=== PATIENT | male | born 1955 | race Caucasian/White ===

== ENCOUNTER 2018-12-06 08:54 | Inpatient (IN) | payer OTHER ==
[2018-12-06 09:24] VITALS: BMI 25.0
--- NOTE | 2018-12-06 10:29 | HP ---
CIWA Score Nausea/Vomitin-Mild Nausea/No Vomiting Muscle Tremors: 3 Anxiety: 2 Agitation: 2 Paroxysmal Sweats: 1-Minimal Palms Moist Orientation: 0-Oriented Tacttile Disturbances: 0-None Auditory Disturbances: 0-None Visual Disturbances: 0-None Headache: 3-Moderate CIWA-Ar Total Score: 12 - Admission Criteria OASAS Guidelines: Admission for Medically Managed Detox: Requires at least one of the followin. CIWA greater than 12 2. Seizures within the past 24 hours 3. Delirium tremens within the past 24 hours 4. Hallucinations within the past 24 hours 5. Acute intervention needed for co occurring medical disorder 6. Acute intervention needed for co occurring psychiatric disorder 7. Severe withdrawal that cannot be handled at a lower level of care (continued vomiting, continued diarrhea, abnormal vital signs) requiring intravenous medication and/or fluids 8. Admission ROS S - HPI Chief Complaint: here for alcohol detox Allergies/Adverse Reactions: Allergies Allergy/AdvReac Type Severity Reaction Status Date / Time Penicillins Allergy Severe Hives Verified 12/06/18 09:18 History of Present Illness: 63 yo with HIV, was recently hospitalized for 2 months for treatment of MRSA infection of L shoulder. Pt states he left one week ago and he started drinking as soon as he left the hospital. Pt states he must have blacked out last night and neighbor called ambulance. Pt states he was in ER overnight and sent here for further management. Does not know name of ER, was given Valium. Pt states he has PCP-Dr. Meagan Taylor, [facility]. Pt states he has lifelong h/o of fast heart rate- was never told why. Given atenolol for this alcohol- 1/4 of vodka/day for the last week, h/o seizure in the past, denies other drug use DUR- #10 percocets 11/26/18 for shoulder pain - Ebola screening Have you traveled outside of the country in the last 21 days: No (N) Have you had contact with anyone from an Ebola affected area: No Do you have a fever: No - Review of Systems Constitutional: No Symptoms Reported EENT: reports: No Symptoms Reported Respiratory: reports: No Symptoms reported Cardiac: reports: No Symptoms Reported GI: reports: No Symptoms Reported : reports: No Symptoms Reported Musculoskeletal: reports: No Symptoms Reported Integumentary: reports: No Symptoms Reported Neuro: reports: No Symptoms reported Endocrine: reports: No Symptoms Reported Hematology: reports: No Symptoms Reported Psychiatric: reports: No Sypmtoms Reported Other Systems: Reviewed and Negative Patient History - Patient Medical History Hx Hypertension: Yes (atenolol) Hx Genitourinary Disorders: Yes (GERD- prilosec) Hx Human Immunodeficiency Virus (HIV): Yes (Biktarvy) Other Medical History: L shoulder MRSA- treated - Patient Surgical History Hx Orthopedic Surgery: Yes (shoulder area with MRSA infection) - Smoking Cessation Smoking history: Never smoked Have you smoked in the past 12 months: No - Substances abused Alcohol Substance route: Oral Frequency: Daily Amount used: 02/20 of vodka Age of first use: 18 Date of last use: 12/05/18 Admission Physical Exam [facility] - Vital Signs Vital Signs: Vital Signs - 24 hr 12/06/18 09:20 Temperature 97.1 F L Pulse Rate 147 H Respiratory 20 Rate Blood Pressure 161/94 - Physical General Appearance: Yes: Within Normal Limits, Thin HEENTM: Yes: Within Normal Limits Respiratory: Yes: Within Normal Limits, Lungs Clear Cardiology: Yes: Within Normal Limits, Tachycardia Abdominal: Yes: Within Normal Limits, Normal Bowel Sounds Back: Yes: Within Normal Limits Musculoskeletal: Yes: Within Normal Limits Extremities: Yes: Within Normal Limits Neurological: Yes: Within Normal Limits Integumentary: Yes: Within Normal Limits - Diagnostic (1) HIV (human immunodeficiency virus infection) Current Visit: Yes Status: Acute (2) Alcohol use disorder Current Visit: Yes Status: Acute (3) Tachycardia Current Visit: Yes Status: Acute (4) HTN (hypertension) Current Visit: Yes Status: Acute Breathalyzer - Breathalyzer Breathalyzer: 0 Urine Drug Screen - Test Device Lot number: [id number] Expiration date: 07/17/20 - Control Is test valid?: Yes - Results Drug screen NEGATIVE: No Urine drug screen results: OXY-Oxycodone, BZO-Benzodiazepines Inpatient Rehab Admission - Rehab Decision to Admit Inpatient rehab admission?: No
[2018-12-06] MEDS ORDERED: ACETAMINOPHEN 325 MG TABLET (FP) PO PRN ×2 (11:00)
[2018-12-06] MEDS ORDERED: IBUPROFEN 400 MG TABLET (FP) PO PRN (11:00)
[2018-12-06] MEDS ORDERED: LORazepam 1 MG TABLET PO PRN (11:00)
[2018-12-06] MEDS ORDERED: BISMUTH SUBSALICYLATE 524 MG/30 ML UD PO PRN (11:00)
[2018-12-06] MEDS ORDERED: MELATONIN 5 MG TABLETS PO PRN (11:00)
[2018-12-06] MEDS ORDERED: METHOCARBAMOL 500 MG TABLET PO PRN (11:00)
[2018-12-06] MEDS ORDERED: MAG HYDROX/AL HYDROX/SIMETH 30 ML UNIT-DOSE CUP PO PRN (11:00)
[2018-12-06] MEDS ORDERED: MAGNESIUM CITRATE 300 ML BOTTLE PO PRN (11:00)
[2018-12-06] MEDS ORDERED: hydrOXYzine PAMOATE 25 MG CAPSULE (FP) PO PRN (11:00)
[2018-12-06] MEDS ORDERED: MENTHOL/PHENOL 1 EACH UD MM PRN (11:00)
[2018-12-06] MEDS ORDERED: LORazepam 2 MG TABLET PO ONE (11:00)
[2018-12-06] MEDS ORDERED: MAGNESIUM HYDROX 2400MG/30ML ORAL SUSPENSION 30 ML CUP PO PRN (11:00)
[2018-12-06] MEDS ORDERED: PATIENT'S OWN MEDICATION (NON-FORMULARY) (Atenolol [Tenormin] 100 MG) PO SCH (11:15)
[2018-12-06] MEDS ORDERED: PATIENT'S OWN MEDICATION (NON-FORMULARY) (Bictegrav/Emtricit/Tenofov Ala 1 EACH) PO SCH (11:15)
--- NOTE | 2018-12-06 15:29 | EKG ---
Test Reason : Blood Pressure : / mmHG Vent. Rate : 136 BPM Atrial Rate : 136 BPM P-R Int : 142 ms QRS Dur : 112 ms QT Int : 292 ms P-R-T Axes : 026 -55 063 degrees QTc Int : 439 ms SINUS TACHYCARDIA LEFT AXIS DEVIATION ABNORMAL ECG NO PREVIOUS ECGS AVAILABLE Confirmed by MD DAMON, MUSHTAQ ([id number]) on 12/06/2018 3:28:44 PM Referred By: Confirmed By:MUSHTAQ JOSE MD
[2018-12-06] MEDS: ATENOLOL 50 MG TABLET (FP) PO SCH (15:36)
[2018-12-06] MEDS: LORazepam 2 MG TABLET PO SCH ×2 (17:45→22:29)
[2018-12-06] MEDS: THIAMINE HCL 100 MG TABLET (FP) PO SCH (22:29)
[2018-12-07] MEDS: LORazepam 2 MG TABLET PO SCH ×4 (05:45→22:11)
[2018-12-07 10:01] LABS: HEMATOCRIT 38.7 % (35.4-49); MCH 30.9 pg (25.7-33.7); MCHC 33.7 g/dl (32.0-35.9); MEAN CELL VOLUME 91.9 fl (80-96); MEAN PLT VOLUME 7.7 fl (7.5-11.1); PLATELET COUNT 176 K/MM3 (134-434); RBC 4.21 M/mm3 (4.00-5.60); RDW 13.9 % (11.9-15.9); WHITE BLOOD COUNT 5.4 K/mm3 (4.0-10.0)
[2018-12-07 10:06] LABS: ALBUMIN 2.9 g/dl (3.4-5.0); BILIRUBIN,TOTAL 0.5 mg/dL (0.2-1); BLOOD UREA NITROGEN 22.5 mg/dL (7-18); CALCIUM 8.4 mg/dL (8.5-10.1); CREATININE 1.1 mg/dL (0.55-1.3); POTASSIUM 4.2 mmol/L (3.5-5.1); TOT PROT 7.1 g/dl (6.4-8.2)
[2018-12-07] MEDS: PRENATAL VITAMINS W/ FOLIC ACID TABLET (FP) PO SCH (10:34)
[2018-12-07] MEDS: BICTEGRAV/EMTRICIT/TENOFOV (BIKTARVY) 50-200-25 MG TABLET PO SCH (10:34)
--- NOTE | 2018-12-07 11:45 | PN ---
[facility] CIWA - CIWA Score Nausea/Vomitin-Mild Nausea/No Vomiting Muscle Tremors: 4-Moderate,w/Arms Extend Anxiety: 4-Mod. Anxious/Guarded Agitation: 3 Paroxysmal Sweats: 2 Orientation: 0-Oriented Tacttile Disturbances: 0-None Auditory Disturbances: 0-None Visual Disturbances: 0-None Headache: 0-None Present CIWA-Ar Total Score: 14 S Progress Note (SOAP) Subjective: report today has alcohol withdrawal sx more than yesterday but ativan helps the anxiety and tremor ate breakfast resting on bed comfortably Objective: 12/07/18 11:41 Vital Signs Temperature 97.2 F L 12/07/18 09:06 Pulse Rate 82 12/07/18 09:06 Respiratory Rate 16 12/07/18 09:06 Blood Pressure 118/84 12/07/18 09:06 O2 Sat by Pulse Oximetry (%) Laboratory Last Values WBC 5.4 K/mm3 (4.0-10.0) 12/07/18 08:00 RBC 4.21 M/mm3 (4.00-5.60) 12/07/18 08:00 Hgb 13.0 GM/dL (11.7-16.9) 12/07/18 08:00 Hct 38.7 % (35.4-49) 12/07/18 08:00 MCV 91.9 fl (80-96) 12/07/18 08:00 MCH 30.9 pg (25.7-33.7) 12/07/18 08:00 MCHC 33.7 g/dl (32.0-35.9) 12/07/18 08:00 RDW 13.9 % (11.9-15.9) 12/07/18 08:00 Plt Count 176 K/MM3 (134-434) 12/07/18 08:00 MPV 7.7 fl (7.5-11.1) 12/07/18 08:00 Sodium 141 mmol/L (136-145) 12/07/18 08:00 Potassium 4.2 mmol/L (3.5-5.1) 12/07/18 08:00 Chloride 106 mmol/L (98-107) 12/07/18 08:00 Carbon Dioxide 26 mmol/L (21-32) 12/07/18 08:00 Anion Gap 10 MMOL/L (8-16) 12/07/18 08:00 BUN 22.5 mg/dL (7-18) H 12/07/18 08:00 Creatinine 1.1 mg/dL (0.55-1.3) 12/07/18 08:00 Est GFR (CKD-EPI)AfAm 82.37 12/07/18 08:00 Est GFR (CKD-EPI)NonAf 71.07 12/07/18 08:00 Random Glucose 151 mg/dL (74-106) H 12/07/18 08:00 Calcium 8.4 mg/dL (8.5-10.1) L 12/07/18 08:00 Total Bilirubin 0.5 mg/dL (0.2-1) 12/07/18 08:00 AST 35 U/L (15-37) 12/07/18 08:00 ALT 24 U/L (13-61) 12/07/18 08:00 Alkaline Phosphatase 89 U/L (45-117) 12/07/18 08:00 Total Protein 7.1 g/dl (6.4-8.2) 12/07/18 08:00 Albumin 2.9 g/dl (3.4-5.0) L 12/07/18 08:00 RPR Titer Nonreactive (NONREACTIVE) 12/07/18 08:00 lab noted Assessment: 12/07/18 11:45 alcohol withdrawal sx Plan: continue ativan detox regimen
[2018-12-07] MEDS: ATENOLOL 50 MG TABLET (FP) PO SCH (12:35)
[2018-12-07] MEDS: THIAMINE HCL 100 MG TABLET (FP) PO SCH (22:11)
[2018-12-08] MEDS: LORazepam 1 MG TABLET PO SCH ×4 (05:40→22:11)
[2018-12-08] MEDS: PRENATAL VITAMINS W/ FOLIC ACID TABLET (FP) PO SCH (10:02)
[2018-12-08] MEDS: BICTEGRAV/EMTRICIT/TENOFOV (BIKTARVY) 50-200-25 MG TABLET PO SCH (10:02)
[2018-12-08] MEDS: ATENOLOL 50 MG TABLET (FP) PO SCH (10:04)
--- NOTE | 2018-12-08 12:01 | PN ---
[facility] CIWA - CIWA Score Nausea/Vomitin-Mild Nausea/No Vomiting Muscle Tremors: 3 Anxiety: 2 Agitation: 1-Slight > Activity Paroxysmal Sweats: 1-Minimal Palms Moist Orientation: 0-Oriented Tacttile Disturbances: 1-Very Mild Itch/Numbness Auditory Disturbances: 1-Very Mild Visual Disturbances: 0-None Headache: 0-None Present CIWA-Ar Total Score: 10 S Progress Note (SOAP) Subjective: doing well with ativan detox regimen ate breakfast tolerate food and fluid well less tremor mild anxiety Objective: 12/08/18 12:00 Vital Signs Temperature 97.7 F 12/08/18 09:20 Pulse Rate 78 12/08/18 09:20 Respiratory Rate 18 12/08/18 09:20 Blood Pressure 133/78 12/08/18 09:20 O2 Sat by Pulse Oximetry (%) Laboratory Last Values WBC 5.4 K/mm3 (4.0-10.0) 12/07/18 08:00 RBC 4.21 M/mm3 (4.00-5.60) 12/07/18 08:00 Hgb 13.0 GM/dL (11.7-16.9) 12/07/18 08:00 Hct 38.7 % (35.4-49) 12/07/18 08:00 MCV 91.9 fl (80-96) 12/07/18 08:00 MCH 30.9 pg (25.7-33.7) 12/07/18 08:00 MCHC 33.7 g/dl (32.0-35.9) 12/07/18 08:00 RDW 13.9 % (11.9-15.9) 12/07/18 08:00 Plt Count 176 K/MM3 (134-434) 12/07/18 08:00 MPV 7.7 fl (7.5-11.1) 12/07/18 08:00 Sodium 141 mmol/L (136-145) 12/07/18 08:00 Potassium 4.2 mmol/L (3.5-5.1) 12/07/18 08:00 Chloride 106 mmol/L (98-107) 12/07/18 08:00 Carbon Dioxide 26 mmol/L (21-32) 12/07/18 08:00 Anion Gap 10 MMOL/L (8-16) 12/07/18 08:00 BUN 22.5 mg/dL (7-18) H 12/07/18 08:00 Creatinine 1.1 mg/dL (0.55-1.3) 12/07/18 08:00 Est GFR (CKD-EPI)AfAm 82.37 12/07/18 08:00 Est GFR (CKD-EPI)NonAf 71.07 12/07/18 08:00 Random Glucose 151 mg/dL (74-106) H 12/07/18 08:00 Calcium 8.4 mg/dL (8.5-10.1) L 12/07/18 08:00 Total Bilirubin 0.5 mg/dL (0.2-1) 12/07/18 08:00 AST 35 U/L (15-37) 12/07/18 08:00 ALT 24 U/L (13-61) 12/07/18 08:00 Alkaline Phosphatase 89 U/L (45-117) 12/07/18 08:00 Total Protein 7.1 g/dl (6.4-8.2) 12/07/18 08:00 Albumin 2.9 g/dl (3.4-5.0) L 12/07/18 08:00 RPR Titer Nonreactive (NONREACTIVE) 12/07/18 08:00 lab noted 12/08/18 12:04 random glucose elevation fasting glucose Assessment: 12/08/18 12:05 alcohol withdrawal sx Plan: continue ativan detox regimen
[2018-12-08] MEDS: THIAMINE HCL 100 MG TABLET (FP) PO SCH (22:11)
[2018-12-09] MEDS ORDERED: LORazepam 0.5 MG TABLET PO PRN
[2018-12-09] MEDS: LORazepam 0.5 MG TABLET PO SCH ×2 (05:21→10:19)
[2018-12-09 09:12] VITALS: BP 121/85; PULSE 88; TEMP 98.2
[2018-12-09] MEDS: BICTEGRAV/EMTRICIT/TENOFOV (BIKTARVY) 50-200-25 MG TABLET PO SCH (10:18)
[2018-12-09] MEDS: ATENOLOL 50 MG TABLET (FP) PO SCH (10:19)
[2018-12-09] MEDS: PRENATAL VITAMINS W/ FOLIC ACID TABLET (FP) PO SCH (10:19)
--- NOTE | 2018-12-09 13:28 | DS ---
[facility] Detox Discharge Summary Admission Date: 12/06/18 Discharge Date: 12/09/18 - History Present History: Alcohol Dependence, Opioid Dependence Additional Comments: 63 years old male admitted on 12/06/18 for alcohol withdrawal sx management dd well with ativan detox regimen no complication through out the detox stay patient is alert oriented x 3 Cardiac S1S2 regular rate rhythm respiratory clear lung bilaterally on auscultation extremities full range of motion - Physical Exam Results Vital Signs: Vital Signs Temperature 98.2 F 12/09/18 09:11 Pulse Rate 88 12/09/18 09:11 Respiratory Rate 16 12/09/18 09:11 Blood Pressure 121/85 12/09/18 09:11 O2 Sat by Pulse Oximetry (%) Pertinent Admission Physical Exam Findings: alcohol withdrawal sx Laboratory Last Values WBC 5.4 K/mm3 (4.0-10.0) 12/07/18 08:00 RBC 4.21 M/mm3 (4.00-5.60) 12/07/18 08:00 Hgb 13.0 GM/dL (11.7-16.9) 12/07/18 08:00 Hct 38.7 % (35.4-49) 12/07/18 08:00 MCV 91.9 fl (80-96) 12/07/18 08:00 MCH 30.9 pg (25.7-33.7) 12/07/18 08:00 MCHC 33.7 g/dl (32.0-35.9) 12/07/18 08:00 RDW 13.9 % (11.9-15.9) 12/07/18 08:00 Plt Count 176 K/MM3 (134-434) 12/07/18 08:00 MPV 7.7 fl (7.5-11.1) 12/07/18 08:00 Sodium 141 mmol/L (136-145) 12/07/18 08:00 Potassium 4.2 mmol/L (3.5-5.1) 12/07/18 08:00 Chloride 106 mmol/L (98-107) 12/07/18 08:00 Carbon Dioxide 26 mmol/L (21-32) 12/07/18 08:00 Anion Gap 10 MMOL/L (8-16) 12/07/18 08:00 BUN 22.5 mg/dL (7-18) H 12/07/18 08:00 Creatinine 1.1 mg/dL (0.55-1.3) 12/07/18 08:00 Est GFR (CKD-EPI)AfAm 82.37 12/07/18 08:00 Est GFR (CKD-EPI)NonAf 71.07 12/07/18 08:00 Random Glucose 151 mg/dL (74-106) H 12/07/18 08:00 Fasting Glucose 116 mg/dL (74-106) H 12/09/18 08:15 Calcium 8.4 mg/dL (8.5-10.1) L 12/07/18 08:00 Total Bilirubin 0.5 mg/dL (0.2-1) 12/07/18 08:00 AST 35 U/L (15-37) 12/07/18 08:00 ALT 24 U/L (13-61) 12/07/18 08:00 Alkaline Phosphatase 89 U/L (45-117) 12/07/18 08:00 Total Protein 7.1 g/dl (6.4-8.2) 12/07/18 08:00 Albumin 2.9 g/dl (3.4-5.0) L 12/07/18 08:00 RPR Titer Nonreactive (NONREACTIVE) 12/07/18 08:00 lab noted patient agrees to bringing in lab result to ID provider for follow up glucose serum level - Treatment Hospital Course: Detox Protocol Followed, Detoxed Safely, Responded well, Discharged Condition Good, Rehab Referral Accepted Patient has Accepted a Rehab Referral to: [facility] - Medication Discharge Medications: Ambulatory Orders Atenolol [Tenormin] 100 mg PO DAILY 12/06/18 Bictegrav/Emtricit/Tenofov Ala [Biktarvy 50-200-25 mg Tablet] 1 each PO DAILY Omeprazole 40 mg PO DAILY 12/06/18 Naloxone HCl [Narcan] 4 mg NS ASDIR PRN #1 spray 12/09/18 - Diagnosis (1) Alcohol dependence with withdrawal, uncomplicated Current Visit: Yes Status: Acute (2) HIV (human immunodeficiency virus infection) Current Visit: Yes Status: Chronic Qualifiers: HIV symptom status: asymptomatic Qualified Code(s): Z21 - Asymptomatic human immunodeficiency virus [HIV] infection status (3) HTN (hypertension) Current Visit: Yes Status: Chronic Qualifiers: Hypertension type: essential hypertension Qualified Code(s): I10 - Essential (primary) hypertension - AMA Did Patient Leave Against Medical Advice: No CIWA Score - CIWA Score Nausea/Vomitin-No Nausea/No Vomiting Muscle Tremors: 2 Anxiety: 1-Mildly Anxious Agitation: 1-Slight > Activity Paroxysmal Sweats: No Perspiration Orientation: 0-Oriented Tacttile Disturbances: 1-Very Mild Itch/Numbness Auditory Disturbances: 0-None Visual Disturbances: 0-None Headache: 0-None Present CIWA-Ar Total Score: 5
[2018-12-10] MEDS ORDERED: LORazepam 0.5 MG TABLET PO ONE (05:00)
== END 2018-12-09 11:23 | disposition home or self-care (01) | DRG 897 ==
LOC: YASAS 08:54 → Y3N 11:32
PROVIDERS: ADMIT Allergy & Immunology; ATTEND Allergy & Immunology
PROC: HZ2ZZZZ Detoxification Services for Substance Abuse Treatment (ICD-10-PCS; principal; 2018-12-06)
DX: F10.230 Alcohol dependence with withdrawal, uncomplicated (principal); I10 Essential (primary) hypertension; Z21 Asymptomatic human immunodeficiency virus [HIV] infection status; Z86.14 Personal history of Methicillin resistant Staphylococcus aureus infection
CPT/HCPCS: 36415; 80053; 82947; 85027; 86593; 93005; 93010

== ENCOUNTER 2021-12-04 12:00 | Inpatient (IN) | payer OTHER ==
[2021-12-04] MEDS ORDERED: cloNIDine HCL 0.1 MG TABLET PO ONE (14:00)
[2021-12-04] MEDS ORDERED: cloNIDine HCL 0.1 MG TABLET ONE (14:13)
[2021-12-04 14:56] VITALS: BMI 24.3
[2021-12-04] MEDS ORDERED: NALOXONE HCL (KLOXXADO) 8 MG SPRAY NS PRN (15:42)
[2021-12-04] MEDS ORDERED: ACETAMINOPHEN 325 MG TABLET (FP) PO PRN ×2 (15:42)
[2021-12-04] MEDS ORDERED: IBUPROFEN 600 MG TABLET (FP) PO PRN (15:42)
[2021-12-04] MEDS ORDERED: BENZOCAINE/MENTHOL (CHLORASEPTIC ) LOZENGE MM PRN (15:42)
[2021-12-04] MEDS ORDERED: IBUPROFEN 400 MG TABLET (FP) PO PRN (15:42)
[2021-12-04] MEDS ORDERED: MAGNESIUM HYDROX 2400MG/30ML ORAL SUSPENSION 30 ML CUP PO PRN (15:42)
[2021-12-04] MEDS ORDERED: MAGNESIUM CITRATE 300 ML BOTTLE PO PRN (15:42)
[2021-12-04] MEDS ORDERED: DICYCLOMINE HCL 10 MG CAPSULE PO PRN (15:42)
[2021-12-04] MEDS ORDERED: ONDANSETRON *ODT* 4 MG TABLET SL PRN (15:42)
[2021-12-04] MEDS ORDERED: LOPERAMIDE HCL 2 MG CAPSULE PO PRN (15:42)
[2021-12-04] MEDS ORDERED: BISMUTH SUBSALICYLATE 262 MG/15 ML BTL PO PRN (15:42)
[2021-12-04] MEDS ORDERED: METHOCARBAMOL 500 MG TABLET PO PRN (15:42)
[2021-12-04] MEDS ORDERED: LORazepam 2 MG TABLET PO ONE (15:46)
[2021-12-04] MEDS ORDERED: LORazepam 1 MG TABLET PO PRN (15:46)
[2021-12-04] MEDS ORDERED: LORazepam 2 MG TABLET ONE (15:51)
[2021-12-04] MEDS ORDERED: ATENOLOL 50 MG TABLET (FP) PO SCH (15:55)
[2021-12-04] MEDS: hydrOXYzine PAMOATE 25 MG CAPSULE (FP) PO PRN (17:55)
[2021-12-04] MEDS: PRENATAL VITAMINS W/ FOLIC ACID TABLET (FP) PO SCH (17:56)
[2021-12-04] MEDS: LORazepam 2 MG TABLET PO SCH ×2 (17:56→22:31)
[2021-12-04] MEDS: MAG HYDROX/AL HYDROX/SIMETH 30 ML UNIT-DOSE CUP PO PRN (18:00)
[2021-12-04] MEDS: MELATONIN 5 MG TABLETS PO SCH (22:31)
[2021-12-04] MEDS: THIAMINE HCL 100 MG TABLET (FP) PO SCH (22:32)
[2021-12-04] MEDS: ATENOLOL 50 MG TABLET (FP) PO SCH (22:32)
[2021-12-04] MEDS: BETAMETHASONE DIPR 0.05% OINT 45 GM TUBE TP SCH (23:36)
[2021-12-05] MEDS: LORazepam 2 MG TABLET PO SCH ×4 (05:53→22:11)
[2021-12-05] MEDS: PRENATAL VITAMINS W/ FOLIC ACID TABLET (FP) PO SCH (10:41)
[2021-12-05] MEDS: BICTEGRAV/EMTRICIT/TENOFOV (BIKTARVY) 50-200-25 MG TABLET PO SCH (10:43)
[2021-12-05] MEDS: PANTOPRAZOLE 40 MG TABLET PO SCH (10:43)
[2021-12-05] MEDS: BETAMETHASONE DIPR 0.05% OINT 45 GM TUBE TP SCH ×2 (10:44→22:11)
[2021-12-05] MEDS: ATENOLOL 50 MG TABLET (FP) PO SCH (11:29)
[2021-12-05] MEDS: hydrOXYzine PAMOATE 25 MG CAPSULE (FP) PO PRN (13:21)
[2021-12-05 14:13] LABS: HEMATOCRIT 36.6 % (35.4-49); HEMOGLOBIN 12.8 GM/dL (11.7-16.9); MCH 33.1 pg (25.7-33.7); MCHC 34.9 g/dl (32.0-35.9); MEAN PLT VOLUME 8.1 fl (7.5-11.1); PLATELET COUNT 202 10^3/uL (134-434); RBC 3.85 M/mm3 (4.00-5.60); RDW 13.4 % (11.9-15.9); WHITE BLOOD COUNT 6.1 K/mm3 (4.0-10.0)
[2021-12-05 14:22] LABS: CALCIUM 8.3 mg/dL (8.5-10.1)
[2021-12-05 14:23] LABS: ALBUMIN 3.1 g/dl (3.4-5.0); BLOOD UREA NITROGEN 20.8 mg/dL (7-18)
[2021-12-05 14:26] LABS: CREATININE 0.9 mg/dL (0.55-1.3)
[2021-12-05 14:27] LABS: BILIRUBIN,TOTAL 1.3 mg/dL (0.2-1)
[2021-12-05] MEDS: LACTULOSE 20 GM/30 ML UDC (FOR ORAL USE ONLY) PO SCH ×2 (15:49→22:11)
[2021-12-05] MEDS: MAG HYDROX/AL HYDROX/SIMETH 30 ML UNIT-DOSE CUP PO PRN (18:31)
[2021-12-05] MEDS: MELATONIN 5 MG TABLETS PO SCH (22:11)
[2021-12-05] MEDS: THIAMINE HCL 100 MG TABLET (FP) PO SCH (22:11)
[2021-12-06] MEDS: LORazepam 1 MG TABLET PO SCH ×4 (05:05→22:13)
[2021-12-06] MEDS: LACTULOSE 20 GM/30 ML UDC (FOR ORAL USE ONLY) PO SCH ×3 (05:06→22:13)
[2021-12-06] MEDS: BICTEGRAV/EMTRICIT/TENOFOV (BIKTARVY) 50-200-25 MG TABLET PO SCH (10:15)
[2021-12-06] MEDS: PRENATAL VITAMINS W/ FOLIC ACID TABLET (FP) PO SCH (10:15)
[2021-12-06] MEDS: ATENOLOL 50 MG TABLET (FP) PO SCH (10:15)
[2021-12-06] MEDS: PANTOPRAZOLE 40 MG TABLET PO SCH (10:15)
[2021-12-06] MEDS: BETAMETHASONE DIPR 0.05% OINT 45 GM TUBE TP SCH ×2 (10:17→22:13)
[2021-12-06] MEDS: THIAMINE HCL 100 MG TABLET (FP) PO SCH (22:12)
[2021-12-06] MEDS: MELATONIN 5 MG TABLETS PO SCH (22:12)
[2021-12-07] MEDS ORDERED: LORazepam 0.5 MG TABLET PO PRN
[2021-12-07] MEDS: LORazepam 0.5 MG TABLET PO SCH ×4 (06:51→22:02)
[2021-12-07] MEDS: LACTULOSE 20 GM/30 ML UDC (FOR ORAL USE ONLY) PO SCH ×2 (06:52→22:04)
[2021-12-07] MEDS: BICTEGRAV/EMTRICIT/TENOFOV (BIKTARVY) 50-200-25 MG TABLET PO SCH (10:43)
[2021-12-07] MEDS: ATENOLOL 50 MG TABLET (FP) PO SCH (10:43)
[2021-12-07] MEDS: BETAMETHASONE DIPR 0.05% OINT 45 GM TUBE TP SCH ×2 (10:44→22:01)
[2021-12-07] MEDS: PRENATAL VITAMINS W/ FOLIC ACID TABLET (FP) PO SCH (10:44)
[2021-12-07] MEDS: PANTOPRAZOLE 40 MG TABLET PO SCH (10:45)
[2021-12-07] MEDS: THIAMINE HCL 100 MG TABLET (FP) PO SCH (22:01)
[2021-12-07] MEDS: MELATONIN 5 MG TABLETS PO SCH (22:02)
[2021-12-08] MEDS ORDERED: LORazepam 0.5 MG TABLET PO ONE (05:00)
[2021-12-08 09:36] VITALS: BP 127/72; PULSE 75; RESP 16; TEMP 97.6
[2021-12-08] MEDS: ATENOLOL 50 MG TABLET (FP) PO SCH (10:25)
[2021-12-08] MEDS: LACTULOSE 20 GM/30 ML UDC (FOR ORAL USE ONLY) PO SCH (10:25)
[2021-12-08] MEDS: PANTOPRAZOLE 40 MG TABLET PO SCH (10:26)
[2021-12-08] MEDS: BICTEGRAV/EMTRICIT/TENOFOV (BIKTARVY) 50-200-25 MG TABLET PO SCH (10:26)
[2021-12-08] MEDS: PRENATAL VITAMINS W/ FOLIC ACID TABLET (FP) PO SCH (10:26)
[2021-12-08] MEDS: BETAMETHASONE DIPR 0.05% OINT 45 GM TUBE TP SCH (10:26)
== END 2021-12-08 10:29 | disposition home or self-care (01) | DRG 897 ==
LOC: YASAS 12:00 → Y3N 17:31
PROVIDERS: ADMIT Allergy & Immunology; ATTEND Surgery
PROC: HZ2ZZZZ Detoxification Services for Substance Abuse Treatment (ICD-10-PCS; principal; 2021-12-04)
DX: F10.230 Alcohol dependence with withdrawal, uncomplicated (principal); E72.20 Disorder of urea cycle metabolism, unspecified; Z21 Asymptomatic human immunodeficiency virus [HIV] infection status; I10 Essential (primary) hypertension; K21.9 Gastro-esophageal reflux disease without esophagitis; K74.60 Unspecified cirrhosis of liver; L40.9 Psoriasis, unspecified; Z86.19 Personal history of other infectious and parasitic diseases; Z88.0 Allergy status to penicillin
CPT/HCPCS: 36415; 80053; 82140; 85027; 86593; 86780; 93005; 93010; C9803-CS; U0003; U0005

== ENCOUNTER 2023-02-26 13:52 | Inpatient (IN) | payer OTHER ==
[2023-02-26 14:51] VITALS: BMI 27.9
[2023-02-26] MEDS ORDERED: chlordiazePOXIDE HCL 25 MG CAPSULE PO PRN (18:32)
[2023-02-26] MEDS ORDERED: chlordiazePOXIDE HCL 25 MG CAPSULE PO ONE (18:32)
[2023-02-26] MEDS ORDERED: PANTOPRAZOLE 40 MG TABLET PO SCH (18:45)
[2023-02-26] MEDS ORDERED: ONDANSETRON *ODT* 4 MG TABLET SL PRN (18:52)
[2023-02-26] MEDS ORDERED: guaiFENesin 600 MG TABLET.ER (FP) PO PRN (18:52)
[2023-02-26] MEDS ORDERED: BISMUTH SUBSALICYLATE 524 MG/30 ML PO PRN (18:52)
[2023-02-26] MEDS ORDERED: MAG HYDROX/AL HYDROX/SIMETH 30 ML UNIT-DOSE CUP PO PRN (18:52)
[2023-02-26] MEDS ORDERED: IBUPROFEN 600 MG TABLET (FP) PO PRN (18:52)
[2023-02-26] MEDS ORDERED: IBUPROFEN 400 MG TABLET (FP) PO PRN (18:52)
[2023-02-26] MEDS ORDERED: POLYETHYLENE GLYCOL (HEALTHYLAX) 3350 17 GM PACKET PO PRN (18:52)
[2023-02-26] MEDS ORDERED: BENZONATATE 200 MG CAPSULE PO PRN (18:52)
[2023-02-26] MEDS ORDERED: P-EPHED 60MG/TRIPROLIDI 2.5MG TABLET PO PRN (18:52)
[2023-02-26] MEDS ORDERED: BENZOCAINE/MENTHOL (CHLORASEPTIC ) LOZENGE MM PRN (18:52)
[2023-02-26] MEDS ORDERED: LOPERAMIDE HCL 2 MG CAPSULE PO PRN (18:52)
[2023-02-26] MEDS ORDERED: MAGNESIUM HYDROX 2400MG/30ML ORAL SUSPENSION 30 ML CUP PO PRN (18:52)
[2023-02-26] MEDS ORDERED: chlordiazePOXIDE HCL 25 MG CAPSULE ONE (19:20)
[2023-02-26] MEDS ORDERED: METOPROLOL TARTRATE 25 MG TABLET (FP) ONE (19:20)
[2023-02-26] MEDS ORDERED: METOPROLOL TARTRATE 25 MG TABLET (FP) PO ONE (19:30)
[2023-02-26] MEDS: PANTOPRAZOLE 40 MG TABLET PO SCH (20:01)
[2023-02-26] MEDS: MELATONIN 5 MG TABLETS PO SCH (22:16)
[2023-02-26] MEDS: THIAMINE HCL 100 MG TABLET (FP) PO SCH (22:16)
[2023-02-26] MEDS: chlordiazePOXIDE HCL 25 MG CAPSULE PO SCH (22:16)
[2023-02-27] MEDS: chlordiazePOXIDE HCL 25 MG CAPSULE PO SCH ×4 (05:29→22:10)
[2023-02-27] MEDS: PRENATAL VITAMINS W/ FOLIC ACID TABLET (FP) PO SCH (10:06)
[2023-02-27] MEDS: PANTOPRAZOLE 40 MG TABLET PO SCH (10:06)
[2023-02-27 11:46] LABS: HEMATOCRIT 30.8 % (35.4-49); HEMOGLOBIN 10.4 GM/dL (11.7-16.9); MCH 36.8 pg (25.7-33.7); MCHC 33.9 g/dl (32.0-35.9); MEAN CELL VOLUME 108.5 fl (80-96); MEAN PLT VOLUME 8.7 fl (7.5-11.1); PLATELET COUNT 126 10^3/uL (134-434); RBC 2.84 M/mm3 (4.00-5.60); RDW 16.3 % (11.9-15.9); WHITE BLOOD COUNT 3.4 K/mm3 (4.0-10.0)
[2023-02-27 12:28] LABS: CHLORIDE 104 mmol/L (98-107); SODIUM 142 mmol/L (136-145)
[2023-02-27 12:49] LABS: CALCIUM 7.2 mg/dL (8.5-10.1)
[2023-02-27 12:50] LABS: ALBUMIN 2.6 g/dl (3.4-5.0); ANION GAP 9 mmol/L (4-13); BLOOD UREA NITROGEN 15.9 mg/dL (7-18); CO2 30 mmol/L (21-32); GLUCOSE,RANDOM 125 mg/dL (74-106)
[2023-02-27 12:52] LABS: CREATININE 1.1 mg/dL (0.55-1.3); SGPT/ALT 76 U/L (13-61)
[2023-02-27 12:53] LABS: TOT PROT 6.3 g/dl (6.4-8.2)
[2023-02-27 12:54] LABS: BILIRUBIN,TOTAL 0.8 mg/dL (0.2-1); SGOT/AST 115 U/L (15-37)
[2023-02-27 12:55] LABS: ALK PHOS 77 U/L (45-117)
[2023-02-27] MEDS: THIAMINE HCL 100 MG TABLET (FP) PO SCH (22:09)
[2023-02-27] MEDS: MELATONIN 5 MG TABLETS PO SCH (22:09)
[2023-02-28] MEDS: chlordiazePOXIDE HCL 25 MG CAPSULE PO SCH ×4 (05:58→22:22)
[2023-02-28] MEDS: PANTOPRAZOLE 40 MG TABLET PO SCH (10:06)
[2023-02-28] MEDS: PRENATAL VITAMINS W/ FOLIC ACID TABLET (FP) PO SCH (10:06)
[2023-02-28] MEDS ORDERED: PATIENT'S OWN MEDICATION (NON-FORMULARY) (Esomeprazole Magnesium [Nexium 24hr] 20 MG Table PO SCH (12:45)
[2023-02-28] MEDS: ATENOLOL 50 MG TABLET (FP) PO SCH (13:39)
[2023-02-28] MEDS: LOSARTAN POTASSIUM 50 MG TABLET PO SCH (13:39)
[2023-02-28] MEDS: BICTEGRAV/EMTRICIT/TENOFOV (BIKTARVY) 50-200-25 MG TABLET PO SCH (13:39)
[2023-02-28] MEDS: ACETAMINOPHEN 325 MG TABLET (FP) PO PRN (13:40)
[2023-02-28] MEDS: THIAMINE HCL 100 MG TABLET (FP) PO SCH (22:21)
[2023-02-28] MEDS: MELATONIN 5 MG TABLETS PO SCH (22:21)
[2023-03-01] MEDS: chlordiazePOXIDE HCL 10 MG CAPSULE PO SCH ×4 (05:30→22:36)
[2023-03-01] MEDS: ACETAMINOPHEN 325 MG TABLET (FP) PO PRN (05:32)
[2023-03-01] MEDS: BICTEGRAV/EMTRICIT/TENOFOV (BIKTARVY) 50-200-25 MG TABLET PO SCH (07:25)
[2023-03-01] MEDS ORDERED: POTASSIUM CHLORIDE ORAL LIQUID 20 MEQ/15 ML PO ONE (09:43)
[2023-03-01] MEDS: PRENATAL VITAMINS W/ FOLIC ACID TABLET (FP) PO SCH (10:11)
[2023-03-01] MEDS: ATENOLOL 50 MG TABLET (FP) PO SCH (10:11)
[2023-03-01] MEDS: PANTOPRAZOLE 40 MG TABLET PO SCH (10:11)
[2023-03-01] MEDS: LOSARTAN POTASSIUM 50 MG TABLET PO SCH (10:11)
[2023-03-01] MEDS: chlordiazePOXIDE HCL 10 MG CAPSULE PO PRN ×2 (14:22→20:05)
[2023-03-01] MEDS: MELATONIN 5 MG TABLETS PO SCH (22:35)
[2023-03-01] MEDS: POTASSIUM CHLORIDE ORAL LIQUID 20 MEQ/15 ML PO SCH (22:36)
[2023-03-01] MEDS: THIAMINE HCL 100 MG TABLET (FP) PO SCH (22:37)
[2023-03-02] MEDS ORDERED: MELATONIN 5 MG TABLETS PO ONE (01:38)
[2023-03-02] MEDS: chlordiazePOXIDE HCL 10 MG CAPSULE PO SCH ×2 (05:25→17:19)
[2023-03-02] MEDS: BICTEGRAV/EMTRICIT/TENOFOV (BIKTARVY) 50-200-25 MG TABLET PO SCH (07:47)
[2023-03-02] MEDS: PANTOPRAZOLE 40 MG TABLET PO SCH (10:24)
[2023-03-02] MEDS: LOSARTAN POTASSIUM 50 MG TABLET PO SCH (10:24)
[2023-03-02] MEDS: POTASSIUM CHLORIDE ORAL LIQUID 20 MEQ/15 ML PO SCH (10:24)
[2023-03-02] MEDS: PRENATAL VITAMINS W/ FOLIC ACID TABLET (FP) PO SCH (10:24)
[2023-03-02] MEDS: ATENOLOL 50 MG TABLET (FP) PO SCH (10:24)
[2023-03-02] MEDS: THIAMINE HCL 100 MG TABLET (FP) PO SCH (22:13)
[2023-03-02] MEDS: MELATONIN 5 MG TABLETS PO SCH (22:13)
[2023-03-03] MEDS ORDERED: chlordiazePOXIDE HCL 10 MG CAPSULE PO ONE (05:00)
[2023-03-03] MEDS: BICTEGRAV/EMTRICIT/TENOFOV (BIKTARVY) 50-200-25 MG TABLET PO SCH (07:17)
[2023-03-03 09:16] VITALS: BP 154/89; PULSE 67; RESP 18; TEMP 97.6
[2023-03-03] MEDS: PANTOPRAZOLE 40 MG TABLET PO SCH (09:46)
[2023-03-03] MEDS: ATENOLOL 50 MG TABLET (FP) PO SCH (09:46)
[2023-03-03] MEDS: LOSARTAN POTASSIUM 50 MG TABLET PO SCH (09:46)
[2023-03-03] MEDS: PRENATAL VITAMINS W/ FOLIC ACID TABLET (FP) PO SCH (09:47)
== END 2023-03-03 09:50 | disposition home or self-care (01) | DRG 897 ==
LOC: YASAS 13:52 → Y3N 18:56
PROVIDERS: ADMIT Allergy & Immunology; ATTEND Surgery
PROC: HZ2ZZZZ Detoxification Services for Substance Abuse Treatment (ICD-10-PCS; principal; 2023-02-26)
DX: F10.230 Alcohol dependence with withdrawal, uncomplicated (principal); Z21 Asymptomatic human immunodeficiency virus [HIV] infection status; E87.6 Hypokalemia; I10 Essential (primary) hypertension; K21.9 Gastro-esophageal reflux disease without esophagitis; K74.60 Unspecified cirrhosis of liver; L40.9 Psoriasis, unspecified; R74.01 Elevation of levels of liver transaminase levels; Z88.0 Allergy status to penicillin
CPT/HCPCS: 36415; 80053; 80307; 85027; 86593; 86780; 87635; 87811; Q0162